=== PATIENT | male | born 1975 | race African-American/Black ===

== ENCOUNTER 2024-01-05 09:02 | Emergency (ER) | payer SELFPAY ==
[~2024-01-05] VITALS: Ht 167.6 cm; Wt 81.6 kg
[2024-01-05 09:19] VITALS: BP 131/84; PULSE 82; RESP 16; TEMP 98; O2SAT 100
[2024-01-05] MEDS ORDERED: SIME180C70 MT (09:20)
== END 2024-01-05 09:41 | disposition home or self-care (01) ==
LOC: ER 09:37
DX: R14.3 Flatulence (principal); K30 Functional dyspepsia
CPT/HCPCS: 99282